=== PATIENT | female | born 1960 | race Caucasian/White ===

== ENCOUNTER 2023-01-02 10:51 | Day surgery (SDC) | payer OTHER ==
[2022-12-29 12:12] LABS: BASOPHILS # (AUTO) 0.1 K/uL (0.0-0.2); BASOPHILS % (AUTO) 1.2 % (0.0-2.0); EOSINOPHILS # (AUTO) 0.3 K/uL (0.0-0.4); EOSINOPHILS % (AUTO) 4.3 % (0.0-4.0); HEMATOCRIT 43.8 % (36-48); HEMOGLOBIN 14.5 g/dL (12.0-16.0); LYMPHOCYTES # (AUTO) 1.5 K/uL (1.0-5.5); LYMPHOCYTES % (AUTO) 25.1 % (20.5-51.5); MEAN CORPUSCULAR HEMOGLOBIN 30 pg (27-31); MEAN CORPUSCULAR HGB CONC 33 % (32-36); MEAN CORPUSCULAR VOLUME 89 fL (79.0-98.0); MONOCYTES # (AUTO) 0.6 K/uL (0.0-1.0); MONOCYTES % (AUTO) 10.2 % (1.7-9.3); NEUTROPHILS # (AUTO) 3.5 K/uL (1.8-7.7); NEUTROPHILS % (AUTO) 59.2 % (40.0-70.0); PLATELET COUNT (AUTO) 279 K/uL (130-430); RED BLOOD CELL COUNT(AUTO) 4.92 MIL/uL (4.2-6.2); RED CELL DISTRIBUTION WIDTH 13.5 % (9.0-15.0)
[2022-12-29 12:23] LABS: PROTHROMBIN TIME 10.1 SECS (9.5-12.5)
[2022-12-29 12:24] LABS: ALBUMIN 3.9 g/dL (3.4-4.8); CALCIUM 9.9 mg/dL (8.4-11.0); CREATININE 0.52 mg/dL (0.55-1.30); TOTAL BILIRUBIN 0.3 mg/dL (0.0-1.0); TOTAL PROTEIN, SERUM 7.5 g/dL (6.4-8.3)
[2022-12-29 12:37] LABS: BILIRUBIN,URINE NEGATIVE (NEGATIVE); BLOOD, URINE NEGATIVE (NEGATIVE); CLARITY/URINE CLEAR (CLEAR); COLOR,URINE YELLOW (YELLOW); GLUCOSE,URINE NEGATIVE (NEGATIVE); KETONES,URINE NEGATIVE (NEGATIVE); LEUKOCYTE ESTERASE ,URINE 2+ (NEGATIVE); NITRITE, URINE NEGATIVE (NEGATIVE); PH,URINE 5.5 (5.0-8.0); PROTEIN URINE NEGATIVE (NEGATIVE); UROBILINOGEN,URINE 0.2 (0.2-1.0)
[2022-12-29 12:51] LABS: BACTERIA,URINE RARE /HPF (None Seen); RBC,URINE 0-3 /HPF (0-3)
[~2023-01-02] VITALS: Ht 170.2 cm; Wt 66.0 kg
[~2023-01-02 10:51] MED LIST: ACETAMINOPHEN 500 MG TABLET PO ONE; CEFAZOLIN SOD 2 GM in D5W 50 ML IV ONE; CELECOXIB 200 MG CAPSULE PO ONE; DEXAMETHASONE SOD PHOSPHATE 10 MG/ML VIAL IVP ONE; PANTOPRAZOLE SODIUM 40 MG TAB PO ONE; PREGABALIN 75 MG CAPSULE (LYRICA) PO ONE; TRANEXAMIC ACID 1,000 MG/10 ML VIAL IV ONE
[2023-01-02] MEDS ORDERED: PREGABALIN 75 MG CAPSULE (LYRICA) ONE (11:38)
[2023-01-02] MEDS ORDERED: ACETAMINOPHEN 500 MG TABLET ONE (11:38)
[2023-01-02] MEDS ORDERED: CELECOXIB 200 MG CAPSULE ONE (11:38)
[2023-01-02] MEDS ORDERED: METF-379 PO ×2 (12:33→16:39)
[2023-01-02] MEDS ORDERED: LISI-209 PO ×3 (12:33→16:42)
[2023-01-02] MEDS ORDERED: ALBU2.5V7 INH (12:33)
[2023-01-02] MEDS ORDERED: LIP10 PO ×3 (12:33→16:42)
[2023-01-02] MEDS ORDERED: KETOROLAC TROMETHAMINE 30 MG VIAL IM PRN (15:00)
[2023-01-02] MEDS ORDERED: hydrALAZINE HCL 20 MG/ML VIAL IV PRN (15:00)
[2023-01-02] MEDS ORDERED: NALOXONE HCL 0.4 MG/ML AMP (NARCAN) IVP PRN ×2 (15:00→15:45)
[2023-01-02] MEDS ORDERED: HYDROmorphone 1 MG/ML INJ. CARTRIDGE IVP PRN ×2 (15:00)
[2023-01-02] MEDS ORDERED: ONDANSETRON HCL 4 MG/2 ML VIAL IVP PRN ×2 (15:00→15:45)
[2023-01-02] MEDS ORDERED: HYDROcodone/ACETAMIN 7.5-325 MG TAB PO PRN (15:45)
[2023-01-02] MEDS ORDERED: ACETAMINOPHEN/CODEINE 300 MG-30 MG TABLET PO PRN (15:45)
[2023-01-02] MEDS ORDERED: ACETAMINOPHEN 325 MG TABLET PO PRN ×2 (15:45→16:30)
[2023-01-02] MEDS ORDERED: SENNOSIDES 8.6 MG TABLET PO PRN (15:45)
[2023-01-02] MEDS ORDERED: CEFAZOLIN 1 GM IVPB PREMIX 50 ML IV SCH (15:45)
[2023-01-02] MEDS ORDERED: DIPHENHYDRAMINE HCL 25 MG CAPSULE PO PRN (15:45)
[2023-01-02] MEDS ORDERED: ALBMDI INH ×2 (16:39→16:42)
[2023-01-02] MEDS ORDERED: METF-1069 PO (16:42)
[2023-01-02 20:30] VITALS: BP_SYST 129; PULSE 84; RESP 20; TEMP 97.2; O2SAT 94
[2023-01-02 21:00] VITALS: BP_SYST 129; PULSE 84; RESP 20; TEMP 97.5
[2023-01-02] MEDS: HYDROcodone/ACETAMIN 5-325 MG TAB (NORCO/ VICODIN) PO PRN (21:19)
[2023-01-02] MEDS: LR 1,000 ML IV SCH (21:20)
[2023-01-02] MEDS ORDERED: CEFAZOLIN 1 GM IVPB PREMIX 100 ML IV ONE (21:35)
[2023-01-02 23:26] VITALS: O2SAT 95
[2023-01-02 23:58] VITALS: BP_SYST 119; PULSE 69; RESP 15; TEMP 98; O2SAT 100
[2023-01-03] MEDS ORDERED: CEFAZOLIN 1 GM IVPB PREMIX 50 ML IV ONE (05:30)
[2023-01-03 08:00] VITALS: BP_SYST 96; PULSE 71; RESP 18; TEMP 98.4; O2SAT 96; O2SAT 97
[2023-01-03] MEDS: HYDROcodone/ACETAMIN 5-325 MG TAB (NORCO/ VICODIN) PO PRN (08:48)
[2023-01-03] MEDS ORDERED: ASPIRIN 81 MG TABLET(ECOTRIN) PO SCH (09:00)
[2023-01-03] MEDS ORDERED: DIPH25CA83 PO (11:14)
[2023-01-03] MEDS ORDERED: SENN-153 PO (11:14)
[2023-01-03 11:28] VITALS: BP_SYST 96; PULSE 78; RESP 16; TEMP 98; O2SAT 98
[2023-01-03 11:40] LABS: HEMOGLOBIN 11.8 g/dL (12.0-16.0); LYMPHOCYTES % (AUTO) 7.4 % (20.5-51.5); MEAN CORPUSCULAR HEMOGLOBIN 29 pg (27-31); MEAN CORPUSCULAR HGB CONC 33 % (32-36); MEAN CORPUSCULAR VOLUME 89 fL (79.0-98.0); MONOCYTES # (AUTO) 0.8 K/uL (0.0-1.0); MONOCYTES % (AUTO) 6.2 % (1.7-9.3); NEUTROPHILS # (AUTO) 11.5 K/uL (1.8-7.7); NEUTROPHILS % (AUTO) 86.4 % (40.0-70.0); PLATELET COUNT (AUTO) 281 K/uL (130-430); RED BLOOD CELL COUNT(AUTO) 4.06 MIL/uL (4.2-6.2); RED CELL DISTRIBUTION WIDTH 13.5 % (9.0-15.0); WHITE BLOOD COUNT (AUTO) 13.3 K/uL (4.8-10.8)
[2023-01-03 11:41] LABS: CALCIUM 9.3 mg/dL (8.4-11.0); CREATININE 0.66 mg/dL (0.55-1.30); POTASSIUM 4.2 mmol/L (3.5-5.1)
[2023-01-03] MEDS: LR 1,000 ML IV SCH (11:45)
[2023-01-03] MEDS ORDERED: NITR-85 PO (13:17)
[2023-01-03 15:26] VITALS: BP_SYST 101; PULSE 61; RESP 16; TEMP 98.5; O2SAT 96
[2023-01-03 15:31] VITALS: BP_SYST 110; PULSE 82; RESP 18; TEMP 98.4; O2SAT 98
[2023-01-03 16:00] VITALS: BP_SYST 118; PULSE 68; RESP 18; TEMP 98.4; O2SAT 98
== END 2023-01-03 16:00 | disposition home or self-care (01) ==
LOC: SDS 10:51 → SMU 10:51 → SDS 01-03 16:00
PROVIDERS: ATTEND Orthopaedic Surgery Sports Medicine
DX: M17.0 Bilateral primary osteoarthritis of knee (principal); E11.69 Type 2 diabetes mellitus with other specified complication; J45.909 Unspecified asthma, uncomplicated; Z79.84 Long term (current) use of oral hypoglycemic drugs; Z79.01 Long term (current) use of anticoagulants; Z79.899 Other long term (current) drug therapy
CPT/HCPCS: 81000; 80053; 81001; 85025 ×2; 85610; 85730; 87081; 36415 ×2; 71046; 27447; 80048; 82962; 73560; 88305; 88311; 97163; 97110; 97530; 97116; Q0163; J0690 ×3; J1100; J3490; J7060; C1713 ×2; C1776; J2405; 81015